=== PATIENT | male | born 1980 | race Caucasian/White ===

== ENCOUNTER 2017-07-05 21:27 | Emergency (ER) | payer OTHER | END 2017-07-06 01:15 | disposition home or self-care (01) | LOC: M ED 07-06 01:15 | DX: S39.81XA Other specified injuries of abdomen, initial encounter (principal); X50.0XXA Overexertion from strenuous movement or load, initial encounter; Y92.9 Unspecified place or not applicable; Y93.89 Activity, other specified | CPT/HCPCS: 76857 ==

== ENCOUNTER 2022-06-02 12:56 | Emergency (ER) | payer OTHER ==
[~2022-06-02] VITALS: Ht 182.9 cm; Wt 102.3 kg
[2022-06-02] MEDS ORDERED: PEPC1TAB5 PO (13:07)
[2022-06-02] MEDS ORDERED: NS 1,000 ML IV SCH (14:25)
[2022-06-02] MEDS ORDERED: ASPIRIN 81MG CHEW TABLET PO ONE (14:25)
[2022-06-02 15:08] LABS: BASO # 0.1 10^3/uL (0.0-0.2); BASO % 1.2 % (0.0-1.0); EOS # 0.3 10^3/uL (0.0-0.5); EOS % 3.3 % (0.0-3.0); HEMATOCRIT 48.3 % (42.0-52.0); HEMOGLOBIN 16.3 g/dl (13.5-17.5); LYMPH # 2.5 10^3/uL (1.5-5.0); LYMPH % 27.8 % (24.0-44.0); MEAN CORPUSCULAR HEMOGLOBIN 29.4 pg (27.0-33.0); MEAN CORPUSCULAR HGB CONC 33.7 g/dl (32.0-36.5); MONO # 0.5 10^3/uL (0.0-0.8); NEUTROPHILS # 5.5 10^3/uL (1.5-8.5); NEUTROPHILS % 61.5 % (36.0-66.0); PLATELET COUNT, AUTOMATED 333 10^3/uL (150-450); RED BLOOD COUNT 5.55 10^6/uL (4.30-6.10)
[2022-06-02 15:39] LABS: RSV AMPLIFICATION NEGATIVE (NEGATIVE)
[2022-06-02 15:41] LABS: INR 0.96
[2022-06-02 15:49] LABS: CK-MB VALUE MASS < 1.0 NG/ML (<3.6)
[2022-06-02 16:23] LABS: LIPASE 54 U/L (12-53)
[2022-06-02 16:24] LABS: CPK CREATINE PHOSPHOKINASE 134 U/L (46-171); MB/CK RELATIVE INDEX 0.74 (< OR =4)
[2022-06-02 16:25] LABS: ALBUMIN 4.2 G/DL (3.2-5.2); ALKALINE PHOSPHATASE 85 U/L (46-116); ALT/SGPT 33 U/L (7.0-40); AST/SGOT 28 U/L (<34); BILIRUBIN,DIRECT 0.2 MG/DL (<0.4); BILIRUBIN,TOTAL 0.6 MG/DL (0.3-1.2); BLOOD UREA NITROGEN 13 MG/DL (9-23); CALCIUM LEVEL 9.5 MG/DL (8.5-10.1); CARBON DIOXIDE LEVEL 26 MMOL/L (20-31); CHLORIDE LEVEL 104 MMOL/L (98-107); CREATININE FOR GFR 1.04 MG/DL (0.70-1.30); GLOMERULAR FILTRATION RATE > 60.0 (>60); GLUCOSE, FASTING 86 MG/DL (60-100); POTASSIUM SERUM 4.5 MMOL/L (3.5-5.1); SODIUM LEVEL 138 MMOL/L (136-145); TOTAL PROTEIN 8.1 G/DL (5.7-8.2)
[2022-06-02] MEDS ORDERED: ISOVUE-370 76% 100ML VIAL As Ordered ONE (16:55)
[2022-06-02] MEDS ORDERED: GI COCKTAIL 50ML BTL(HYOSCYAMINE/MAALOX/LIDOCAINE VISCOUS)(1:3:1) PO ONE (18:00)
[2022-06-02 18:03] LABS: CPK CREATINE PHOSPHOKINASE 111 U/L (46-171)
[2022-06-02 18:16] LABS: CK-MB VALUE MASS < 1.0 NG/ML (<3.6)
[2022-06-02 18:57] VITALS: O2SAT 94
[2022-06-02 19:05] LABS: CK-MB VALUE MASS < 1.0 NG/ML (<3.6)
[2022-06-02 19:06] LABS: CPK CREATINE PHOSPHOKINASE 116 U/L (46-171); MB/CK RELATIVE INDEX 0.86 (< OR =4)
[2022-06-02] MEDS ORDERED: SUCR1SS PO (19:28)
[2022-06-02] MEDS ORDERED: OMEP40CA4 PO (19:28)
[2022-06-02 22:21] VITALS: BP 134/90
== END 2022-06-02 22:24 | disposition home or self-care (01) ==
LOC: M ED 14:00
DX: K29.70 Gastritis, unspecified, without bleeding (principal); R07.9 Chest pain, unspecified; K21.9 Gastro-esophageal reflux disease without esophagitis; M54.50 Low back pain, unspecified; Z79.83 Long term (current) use of bisphosphonates; Z79.899 Other long term (current) drug therapy

== ENCOUNTER → 2022-10-15 | Outpatient (CLI) | payer OTHER ==
[~2022-10-15] MED LIST: OMEP40CA4 PO; PEPC1TAB5 PO; SUCR1SS PO
== END ==
LOC: M PLAIMG 06:54
PROVIDERS: ATTEND Nurse Practitioner Family
DX: M54.6 Pain in thoracic spine (principal); M54.16 Radiculopathy, lumbar region; M54.50 Low back pain, unspecified

== ENCOUNTER → 2023-09-07 | Outpatient (CLI) | payer OTHER | LOC: M CARPUL 08:32 | PROVIDERS: ATTEND Internal Medicine Pulmonary Disease | DX: R06.00 Dyspnea, unspecified (principal) ==

== ENCOUNTER → 2023-10-08 | Outpatient (CLI) | payer OTHER ==
[2023-10-08 09:30] LABS: EOS # 0.4 10^3/uL (0.0-0.5)
== END ==
LOC: M LAB 07:33
PROVIDERS: ATTEND Internal Medicine Pulmonary Disease
DX: J45.30 Mild persistent asthma, uncomplicated (principal)

== ENCOUNTER → 2024-06-19 | Outpatient (CLI) | payer OTHER | LOC: M RAD 14:59 | PROVIDERS: ATTEND Neurological Surgery | DX: M54.12 Radiculopathy, cervical region (principal); M48.02 Spinal stenosis, cervical region; M47.812 Spondylosis without myelopathy or radiculopathy, cervical region; M25.78 Osteophyte, vertebrae ==